=== PATIENT | male | born 1935 | race Caucasian/White ===

== ENCOUNTER 2018-01-29 09:07 | Outpatient (CLI) | payer OTHER | END 2018-01-29 09:15 | disposition home or self-care (01) | LOC: RAD 09:07 | DX: M25.552 Pain in left hip (principal); M25.551 Pain in right hip ==

== ENCOUNTER 2018-09-13 09:52 | Outpatient (CLI) | payer OTHER | END 2018-09-13 10:02 | disposition home or self-care (01) | LOC: RAD 09:52 | DX: M43.16 Spondylolisthesis, lumbar region (principal); M25.551 Pain in right hip; M25.552 Pain in left hip ==

== ENCOUNTER 2018-09-23 09:56 | Outpatient (CLI) | payer OTHER | END 2018-09-23 09:59 | disposition home or self-care (01) | LOC: NUCLEAR 09:56 | DX: M81.0 Age-related osteoporosis without current pathological fracture (principal); M43.16 Spondylolisthesis, lumbar region ==

== ENCOUNTER 2021-04-11 10:22 | Outpatient (CLI) | payer OTHER | END 2021-04-11 10:40 | disposition home or self-care (01) | LOC: MRI 10:22 | DX: M75.101 Unspecified rotator cuff tear or rupture of right shoulder, not specified as traumatic (principal) | CPT/HCPCS: 73221 ==

== ENCOUNTER 2021-05-11 09:22 | Outpatient (CLI) | payer OTHER | END 2021-05-11 09:24 | disposition home or self-care (01) | LOC: RAD 09:22 | PROVIDERS: ATTEND Orthopaedic Surgery | DX: I10 Essential (primary) hypertension (principal) ==

== ENCOUNTER 2022-10-13 13:16 | Outpatient (CLI) | payer OTHER | END 2022-10-13 13:20 | disposition home or self-care (01) | LOC: RAD 13:16 | PROVIDERS: ATTEND Family Medicine | DX: M65.332 Trigger finger, left middle finger (principal) ==

== ENCOUNTER 2022-12-25 12:10 | Outpatient (CLI) | payer OTHER | END 2022-12-25 12:15 | disposition home or self-care (01) | LOC: RAD 12:10 | PROVIDERS: ATTEND Physical Medicine & Rehabilitation | DX: M25.552 Pain in left hip (principal) ==